=== PATIENT | male | born 1955 | race Caucasian/White ===

== ENCOUNTER 2016-08-20 06:58 | Day surgery (SDC) | payer OTHER ==
[~2016-08-20 06:58] MED LIST: ALBUTEROL2.5 MG/3 M INH; AMLODIPINE BESY10 M1 PO; ASPIRIN325 M3 PO; COZAAR100 M1 PO; INVOKAMET 150-1 EACH PO; IPRATROPIU0.2 MG/1 M INH; MOBIC15 M2 PO; NORCO 5-325 TA1 EACH PO; OMEPRAZOLE20 M3 PO; ROXICODONE5 M2 PO; SENOKOT-S TABL1 EACH PO; TRAMADOL HCL50 M2 PO; TYLENOL325 M2 PO
[2016-08-20 07:55] LABS: BASO % 0.2 % (0-2); EOS % 2.4 % (0-7); EOSINOPHIL ABSOLUTE COUNT 0.2 tho/cmm (0.0-0.7); HCT-HEMATOCRIT 48.2 % (36.0-53.5); HGB-HEMOGLOBIN 16.2 gm/dl (13.5-17.0); IMMATURE GRANULOCYTES ABSOLUTE 0.03 tho/cmm (0-0.03); IMMATURE GRANULOCYTES PERCENT 0.3 % (0-0.3); LYMPH % 16.7 % (20-45); LYMPH ABSOLUTE COUNT 1.6 tho/cmm (0.8-4.5); MCH (MEAN CORPUSCULAR HGB) 29.1 pg (28.0-32.0); MCHC MEAN CORPUSCULAR HGB CONC 33.6 % (32.0-36.0); MCV (MEAN CELL VOLUME) 86.5 fl (82.0-96.0); MEAN PLATELET VOLUME 9.6 cmc (9.4-12.4); MONO % 9.2 % (0-12); MONOCYTE ABSOLUTE COUNT 0.9 tho/cmm (0.0-1.2); NEUTROPHIL ABSOLUTE COUNT 6.8 tho/cmm (1.6-8.0); NEUTROPHIL-AUTOMATED 6.8 tho/cmm (1.6-8.0); NEUTROPHILS % 71.2 % (40-80); PLATELET COUNT 244 tho/cmm (150-450); RED BLOOD COUNT 5.57 mil/cmm (4.40-5.70); RED CELL DISTRIBUTION WIDTH 13.4 % (12.4-16.4); WHITE BLOOD COUNT 9.6 tho/cmm (4.0-10.0)
[2016-08-20 07:57] LABS: INR 0.9 INR (0.9-1.1); PROTHROMBIN TIME 10.8 SECONDS (9.0-13.6)
== END 2016-08-20 14:41 ==
LOC: CTSCAN 06:58 → SHSB 06:59
PROVIDERS: Radiology Diagnostic Radiology
PROC: 0FBG3ZX Excision of Pancreas, Percutaneous Approach, Diagnostic (ICD-10-PCS; principal; 2016-08-20)
DX: K86.9 Disease of pancreas, unspecified (principal); R31.9 Hematuria, unspecified; J02.9 Acute pharyngitis, unspecified; R05 Cough; J44.9 Chronic obstructive pulmonary disease, unspecified; E11.65 Type 2 diabetes mellitus with hyperglycemia; I10 Essential (primary) hypertension; Z79.4 Long term (current) use of insulin; Z79.899 Other long term (current) drug therapy; Z87.891 Personal history of nicotine dependence; Z98.890 Other specified postprocedural states
CPT/HCPCS: J2250; J3010; J7030